=== PATIENT | female | born 1930 | race Hispanic/Latino ===

== ENCOUNTER 2017-11-25 13:13 | Emergency (ER) | payer MEDICARE ==
[~2017-11-25 13:13] MED LIST: ASPI-555 PO; AUD IH; CHOL100018 PEG; INSLAN SQ; [UNRECOGNIZED DRUG - CODE] PO
== END 2017-11-25 15:21 | disposition home or self-care (01) ==
LOC: EDH 13:13
DX: K94.23 Gastrostomy malfunction (principal); Z86.73 Personal history of transient ischemic attack (TIA), and cerebral infarction without residual deficits; E11.9 Type 2 diabetes mellitus without complications; M81.0 Age-related osteoporosis without current pathological fracture; G30.9 Alzheimer's disease, unspecified; Z98.890 Other specified postprocedural states

== ENCOUNTER 2018-03-08 20:51 | Inpatient (IN) | payer MEDICARE ==
[~2018-03-08] VITALS: Ht 144.8 cm; Wt 73.4 kg
[2018-03-08] MEDS ORDERED: SODIUM CHLORIDE 0.9% 1000ML 1,000 ML IV ONE (21:27)
[2018-03-08 21:47] LABS: INR 0.9 (0.85-1.15); PARTIAL THROMBOPLASTIN TIME 25.9 SEC (26.3-35.5); PROTHROMBIN TIME 9.5 SEC (9.6-11.6)
[2018-03-08 21:48] LABS: RAPID GROUP A STREP NEGATIVE (NEGATIVE)
[2018-03-08 21:51] LABS: BASOPHILS % (AUTO) 0.5 % (0.0-5.0); EOSINOPHILS % (AUTO) 0.6 % (0.0-8.0); HEMATOCRIT 39.7 % (36-48); LYMPHOCYTES % (AUTO) 10.2 % (21.0-51.0); MEAN CORPUSCULAR HEMOGLOBIN 30.1 pg (27.0-33.0); MEAN CORPUSCULAR HGB CONC 33.5 g/dL (32.0-36.0); MEAN CORPUSCULAR VOLUME 89.8 fL (79-99); MONOCYTES % (AUTO) 4.7 % (3.0-13.0); NUCLEATED RED BLOOD CELLS 0.1 % (0.0-0.19); PLATELET COUNT (AUTO) 175 K/uL (130-400); RED BLOOD CELL COUNT(AUTO) 4.42 MIL/uL (4.00-5.50); RED CELL DISTRIBUTION WIDTH 14.8 % (11.0-15.5)
[2018-03-08] MEDS ORDERED: LEVOFLOXACIN 500 MG/D5W 100 ML 100 ML ONE (21:52)
[2018-03-08 22:01] LABS: CARBON DIOXIDE 23 mmol/L (21-32); CHLORIDE 105 mmol/L (101-111); CREATININE 0.9 mg/dL (0.5-1.5); GLOMERULAR FILTR. RATE CALC 63 mL/min (>60); GLUCOSE,RANDOM 353 mg/dL (70-105); POTASSIUM 3.9 mmol/L (3.5-5.1); SODIUM SERUM 139 mmol/L (136-145); UREA NITROGEN, BLOOD 22 mg/dL (7-18)
[2018-03-08 22:02] LABS: APPEARANCE,URINE SL CLOUDY (CLEAR); BILIRUBIN,URINE NEGATIVE (NEGATIVE); COLOR,URINE YELLOW (YELLOW); GLUCOSE, URINE (UA) >=1000 mg/dL (NEGATIVE); KETONES,URINE 5 mg/dL (NEGATIVE); LEUKOCYTE ESTERASE ,URINE TRACE (NEGATIVE); NITRATE,URINE NEGATIVE (NEGATIVE); OCCULT BLOOD,URINE MODERATE (NEGATIVE); PROTEIN,URINE 30 (NEGATIVE); UROBILINOGEN,URINE 0.2 mg/dL (0.2-1.0)
[2018-03-08 22:05] LABS: BACTERIA,URINE Few /HPF (None Seen); MUCUS,URINE Few LPF (None Seen); RENAL EPITHELIAL CELLS,URINE Rare /HPF (None Seen); TRANSITIONAL EPI CELLS,URINE Few /HPF (None Seen)
[2018-03-08 22:13] LABS: B-TYPE NATRIURETIC PEPTIDE 38 pg/mL (0-100)
[2018-03-08 22:17] LABS: ALANINE AMINOTRANSFERASE 16 U/L (12-78); ALBUMIN 2.9 g/dL (3.5-5.0); ASPARTATE AMINOTRANSFERASE 23 U/L (10-37); BILIRUBIN,TOTAL 0.6 mg/dL (0.2-1.0); CREATINE KINASE MB 0.5 ng/mL (0.5-3.6); CREATINE KINASE, TOTAL 52 U/L (21-232); LIPASE 101 U/L (114-286); MYOGLOBIN 130 ng/mL (10-92); TOTAL PROTEIN, SERUM 7.4 g/dL (6.0-8.3); TROPONIN I < 0.04 ng/mL (0.00-0.06)
[2018-03-09 06:42] LABS: BASOPHILS % (AUTO) 0.3 % (0.0-5.0); EOSINOPHILS % (AUTO) 0.2 % (0.0-8.0); HEMATOCRIT 37.9 % (36-48); LYMPHOCYTES % (AUTO) 12.2 % (21.0-51.0); MEAN CORPUSCULAR HEMOGLOBIN 30.5 pg (27.0-33.0); MEAN CORPUSCULAR HGB CONC 33.9 g/dL (32.0-36.0); MONOCYTES % (AUTO) 5.7 % (3.0-13.0); NEUTROPHILS % (AUTO) 81.6 % (40.0-77.0); PLATELET COUNT (AUTO) 170 K/uL (130-400); RED BLOOD CELL COUNT(AUTO) 4.21 MIL/uL (4.00-5.50); RED CELL DISTRIBUTION WIDTH 14.6 % (11.0-15.5); WHITE BLOOD COUNT (AUTO) 14.1 K/uL (4.8-10.8)
[2018-03-09] MEDS ORDERED: VANCOMYCIN PROTOCOL PER PHARMACY IV SCH (12:30)
[2018-03-09 13:14] LABS: CREATININE 0.8 mg/dL (0.5-1.5); POTASSIUM 3.9 mmol/L (3.5-5.1)
[2018-03-09] MEDS ORDERED: COMPOUND IV REFRIGERATED 1 EACH IVSOLN MISC PRN (14:15)
[2018-03-09] MEDS: VANCOMYCIN 1.25 GM in SODIUM CHLORIDE 0.9% 250 ML IV SCH (15:00)
[2018-03-09 16:00] VITALS: BP_SYST 140; BP_SYST 98; BP_DIAS 55; BP_DIAS 71
[2018-03-09] MEDS ORDERED: GUAIFENESIN-DM 200/20 MG 10 ML PO PRN (19:00)
[2018-03-09] MEDS ORDERED: ACETAMINOPHEN 325 MG TAB PO PRN (19:00)
[2018-03-09] MEDS ORDERED: LACTULOSE 20 GM/30 ML UDCUP PO PRN (19:00)
[2018-03-09] MEDS ORDERED: ONDANSETRON HCL MDV 20ML 2 MG/ML VIAL IV PRN (19:00)
[2018-03-09] MEDS ORDERED: HYDRALAZINE HCL 20 MG/ML VIAL IV PRN (19:00)
[2018-03-09 19:05] VITALS: BP 148/68
[2018-03-09] MEDS: FAMOTIDINE 20MG TAB 20 MG TAB PO SCH (20:53)
[2018-03-09 23:05] VITALS: BP 134/67
[2018-03-10 03:10] VITALS: BP 147/76
[2018-03-10 05:12] LABS: CREATININE 0.8 mg/dL (0.5-1.5); HEMATOCRIT 38.3 % (36-48); MEAN CORPUSCULAR HEMOGLOBIN 30.6 pg (27.0-33.0); MEAN CORPUSCULAR HGB CONC 33.9 g/dL (32.0-36.0); MEAN CORPUSCULAR VOLUME 90.3 fL (79-99); PLATELET COUNT (AUTO) 152 K/uL (130-400); POTASSIUM 3.7 mmol/L (3.5-5.1); RED BLOOD CELL COUNT(AUTO) 4.24 MIL/uL (4.00-5.50); RED CELL DISTRIBUTION WIDTH 15.3 % (11.0-15.5); WHITE BLOOD COUNT (AUTO) 5.2 K/uL (4.8-10.8)
[2018-03-10 07:00] VITALS: BP 139/83
[2018-03-10] MEDS ORDERED: HONE15GE TP (08:10)
[2018-03-10] MEDS ORDERED: INSU100C6 SQ ×2 (08:10)
[2018-03-10] MEDS ORDERED: HUM10VIA6 SQ (08:10)
[2018-03-10] MEDS ORDERED: NYSTPW TP (08:11)
[2018-03-10] MEDS: LEVOFLOXACIN 500 MG/D5W 100 ML 100 ML IV SCH (09:04)
[2018-03-10] MEDS: FAMOTIDINE 20MG TAB 20 MG TAB PO SCH ×2 (09:04→22:54)
[2018-03-10 11:00] VITALS: BP 167/88
[2018-03-10] MEDS: METOCLOPRAMIDE 5 MG TABLET PO SCH ×2 (12:26→17:04)
[2018-03-10] MEDS: VANCOMYCIN 1.25 GM in SODIUM CHLORIDE 0.9% 250 ML IV SCH (14:59)
[2018-03-10 15:00] VITALS: BP 172/90
[2018-03-10] MEDS ORDERED: INSULIN HUMULIN R 100 UNIT/ML 3ML SQ SCH (16:30)
[2018-03-10] MEDS: INSULIN HUMULIN R 100 UNIT/ML 3ML SQ SCH ×2 (17:15→23:15)
[2018-03-10 19:10] VITALS: BP 152/76
[2018-03-10] MEDS: MUPIROCIN OINTMENT 22 GM TUBE TP SCH (21:30)
[2018-03-10 23:10] VITALS: BP 140/75
[2018-03-11] VITALS (23 sets, daily range): BP systolic 85–168; BP diastolic 48–87
[2018-03-11] MEDS: METOCLOPRAMIDE 5 MG TABLET PO SCH ×3 (06:40→16:54)
[2018-03-11] MEDS: INSULIN HUMULIN R 100 UNIT/ML 3ML SQ SCH ×3 (06:40→17:04)
[2018-03-11 06:47] LABS: BASOPHILS % (AUTO) 0.4 % (0.0-5.0); EOSINOPHILS % (AUTO) 2.4 % (0.0-8.0); HEMATOCRIT 39.9 % (36-48); LYMPHOCYTES % (AUTO) 26.1 % (21.0-51.0); MEAN CORPUSCULAR HEMOGLOBIN 30.6 pg (27.0-33.0); MEAN CORPUSCULAR HGB CONC 34.3 g/dL (32.0-36.0); MEAN CORPUSCULAR VOLUME 89.3 fL (79-99); MONOCYTES % (AUTO) 8.1 % (3.0-13.0); PLATELET COUNT (AUTO) 179 K/uL (130-400); RED BLOOD CELL COUNT(AUTO) 4.46 MIL/uL (4.00-5.50); RED CELL DISTRIBUTION WIDTH 14.5 % (11.0-15.5); WHITE BLOOD COUNT (AUTO) 6.6 K/uL (4.8-10.8)
[2018-03-11 06:55] LABS: CREATININE 0.9 mg/dL (0.5-1.5); POTASSIUM 3.6 mmol/L (3.5-5.1)
[2018-03-11] MEDS: LEVOFLOXACIN 500 MG/D5W 100 ML 100 ML IV SCH (08:28)
[2018-03-11] MEDS: MUPIROCIN OINTMENT 22 GM TUBE TP SCH ×2 (08:28→20:41)
[2018-03-11] MEDS: FAMOTIDINE 20MG TAB 20 MG TAB PO SCH ×2 (09:00→20:41)
[2018-03-11] MEDS ORDERED: METOCLOPRAMIDE 10 MG/2 ML VIAL ONE (15:41)
[2018-03-11] MEDS ORDERED: IPRATROPIUM/ALBUTEROL SULFATE 3 ML SOLUTION IH ONE (15:45)
[2018-03-11] MEDS: VANCOMYCIN 1.25 GM in SODIUM CHLORIDE 0.9% 250 ML IV SCH (16:53)
[2018-03-12] MEDS: INSULIN HUMULIN R 100 UNIT/ML 3ML SQ SCH ×3 (00:21→14:06)
[2018-03-12 03:00] VITALS: BP 146/75
[2018-03-12 04:18] LABS: BASOPHILS % (AUTO) 0.4 % (0.0-5.0); EOSINOPHILS % (AUTO) 3.5 % (0.0-8.0); HEMATOCRIT 37.3 % (36-48); MEAN CORPUSCULAR HEMOGLOBIN 30.7 pg (27.0-33.0); MEAN CORPUSCULAR VOLUME 90.2 fL (79-99); MONOCYTES % (AUTO) 8.2 % (3.0-13.0); NEUTROPHILS % (AUTO) 63.9 % (40.0-77.0); NUCLEATED RED BLOOD CELLS 0.1 % (0.0-0.19); PLATELET COUNT (AUTO) 153 K/uL (130-400); RED BLOOD CELL COUNT(AUTO) 4.13 MIL/uL (4.00-5.50); RED CELL DISTRIBUTION WIDTH 14.8 % (11.0-15.5); WHITE BLOOD COUNT (AUTO) 5.4 K/uL (4.8-10.8)
[2018-03-12 04:25] LABS: CREATININE 1.1 mg/dL (0.5-1.5); POTASSIUM 3.9 mmol/L (3.5-5.1)
[2018-03-12 07:46] VITALS: BP 141/72
[2018-03-12] MEDS: METOCLOPRAMIDE 5 MG TABLET PO SCH ×2 (08:08→14:05)
[2018-03-12] MEDS: LEVOFLOXACIN 500 MG/D5W 100 ML 100 ML IV SCH (08:08)
[2018-03-12] MEDS: MUPIROCIN OINTMENT 22 GM TUBE TP SCH (08:08)
[2018-03-12] MEDS: FAMOTIDINE 20MG TAB 20 MG TAB PO SCH (08:08)
[2018-03-12] MEDS ORDERED: LEVO500T2 PO (11:47)
[2018-03-12] MEDS ORDERED: CLIN300C9 PO (11:47)
[2018-03-12 11:52] VITALS: BP 145/58
[2018-03-12 16:00] VITALS: BP 137/74
== END 2018-03-12 18:20 | disposition home or self-care (01) | DRG 393 ==
LOC: EDH 20:51 → EDHIP 22:19 → 3AH 03-09 16:28
PROVIDERS: ADMIT Family Medicine; ATTEND Family Medicine
PROC: 0DH63UZ Insertion of Feeding Device into Stomach, Percutaneous Approach (ICD-10-PCS; principal; 2018-03-11)
DX: K94.23 Gastrostomy malfunction (principal); A41.9 Sepsis, unspecified organism; L89.312 Pressure ulcer of right buttock, stage 2; L89.622 Pressure ulcer of left heel, stage 2; E11.65 Type 2 diabetes mellitus with hyperglycemia; R13.12 Dysphagia, oropharyngeal phase; E86.0 Dehydration; G30.9 Alzheimer's disease, unspecified; K94.02 Colostomy infection; F02.80 Dementia in other diseases classified elsewhere, unspecified severity, without behavioral disturbance, psychotic disturbance, mood disturbance, and anxiety; N39.0 Urinary tract infection, site not specified; E66.9 Obesity, unspecified; M81.0 Age-related osteoporosis without current pathological fracture; Z96.649 Presence of unspecified artificial hip joint; K29.00 Acute gastritis without bleeding; B96.5 Pseudomonas (aeruginosa) (mallei) (pseudomallei) as the cause of diseases classified elsewhere; Z79.84 Long term (current) use of oral hypoglycemic drugs; Z86.73 Personal history of transient ischemic attack (TIA), and cerebral infarction without residual deficits; Z74.01 Bed confinement status; Z68.29 Body mass index [BMI] 29.0-29.9, adult
CPT/HCPCS: 36415; 71045; 80048; 80053; 80202; 80339; 81001; 82550; 82553; 82948; 83605; 83690; 83874; 83880; 84484; 85025; 85027; 85610; 85730; 87040; 87070; 87076; 87077; 87088; 87106; 87186; 87804; 87880; 93005; 94640; J1815; J1956; J2765; J3370; J7030